=== PATIENT | male | born 1995 | race Caucasian/White ===

== ENCOUNTER 2019-03-19 17:56 | Emergency (ER) | payer BC, OTHER ==
[~2019-03-19] VITALS: Ht 175.3 cm; Wt 95.3 kg
[2019-03-19 18:19] VITALS: BP 154/78
[2019-03-19] MEDS ORDERED: DEXAMETHASONE 4 MG TABLET PO STA (18:23)
--- NOTE | 2019-03-19 18:28 | PHYS DOC ---
Past Medical History Past Medical History: Asthma (DERICK YEUNG APRN) Past Surgical History: No Surgical History (DERICK YEUNG APRN) Alcohol Use: Occasionally Drug Use: None (DERICK YEUNG APRN) Adult General Chief Complaint Chief Complaint: SHORTNESS OF BREATH HPI HPI Patient is a 24 year old male who presents to the ER for SOB that has been ongoing for 2 weeks. The patient states she's been using inhaler from his friend. Does not a primary care doctor. Has a history of asthma. Denies any pain. (DERICK YEUNG APRN) Review of Systems Review of Systems Constitutional: Denies fever or chills [] Eyes: Denies change in visual acuity, redness, or eye pain [] HENT: Denies nasal congestion or sore throat [] Respiratory: Reports cough and shortness of breath [] Cardiovascular: No additional information not addressed in HPI [] GI: Denies abdominal pain, nausea, vomiting, bloody stools or diarrhea [] : Denies dysuria or hematuria [] Musculoskeletal: Denies back pain or joint pain [] Integument: Denies rash or skin lesions [] Neurologic: Denies headache, focal weakness or sensory changes [] Endocrine: Denies polyuria or polydipsia [] Complete systems were reviewed and found to be within normal limits, except as documented in this note. (DERICK YEUNG APRN) Current Medications Current Medications Current Medications Medications (Trade) Dose Ordered Sig/Ronit Start Time Stop Time Status Last Admin Dose Admin Albuterol/ Ipratropium (Duoneb) 3 ml 1X ONCE 03/19/19 18:45 03/19/19 18:46 DC Dexamethasone (Decadron) 10 mg 1X STAT 03/19/19 18:23 03/19/19 18:25 DC 03/19/19 18:23 10 MG (SCOTT DOS SANTOS MD) Allergies Allergies Allergies Coded Allergies Type Severity Reaction Last Updated Verified No Known Drug Allergies 11/16/15 No (SCOTT DOS SANTOS MD) Physical Exam Physical Exam Constitutional: Well developed, well nourished, no acute distress, non-toxic appearance. [] HENT: Normocephalic, atraumatic, bilateral external ears normal, oropharynx moist, no oral exudates, nose normal. [] Eyes: PERRLA, EOMI, conjunctiva normal, no discharge. [] Neck: Normal range of motion, no tenderness, supple, no stridor. [] Cardiovascular:Heart rate regular rhythm, no murmur [] Lungs & Thorax: Bilateral breath sounds have diffuse wheezing. Abdomen: Bowel sounds normal, soft, no tenderness, no masses, no pulsatile masses. [] Skin: Warm, dry, no erythema, no rash. [] Back: No tenderness, no CVA tenderness. [] Extremities: No tenderness, no cyanosis, no clubbing, ROM intact, no edema. [] Neurologic: Alert and oriented X 3, normal motor function, normal sensory function, no focal deficits noted. [] Psychologic: Affect normal, judgement normal, mood normal. [] (DERICK YEUNG APRN) Current Patient Data Vital Signs Vital Signs Date Time Temp Pulse Resp B/P (MAP) Pulse Ox O2 Delivery O2 Flow Rate FiO2 03/19/19 18:43 94 Room Air 03/19/19 18:19 99.2 75 18 154/78 (103) 99.2 (SCOTT DOS SANTOS MD) EKG EKG [] (DERICK YEUNG APRN) Radiology/Procedures Radiology/Procedures [] (DERICK YEUNG APRN) Course & Med Decision Making Course & Med Decision Making Pertinent Labs and Imaging studies reviewed. (See chart for details) Will order breathing treatment and steroids. Patient is improved after 2 breathing treatment, lungs have cleared, patient states he feels better, will discharge home. (DERICK YEUNG APRN) Course & Med Decision Making Staff Physician Addendum: I was working in the ER during the course of this patient's visit. I was available for consultation as needed, but I was not directly involved in the care of this patient. (SCOTT DOS SANTOS MD) Dragon Disclaimer Dragon Disclaimer This electronic medical record was generated, in whole or in part, using a voice recognition dictation system. (DERICK YEUNG APRN) Departure Departure Impression: Primary Impression: Asthma exacerbation Disposition: HOME, SELF-CARE Condition: STABLE Referrals: NO PCP (PCP) Patient Instructions: Asthma Attacks, Prevention, Asthma Prevention-Brief, Asthma, Adult Additional Instructions: Thank you for visiting [facility]. We appreciate you trusting us with your care. If any additional problems come up don't hesitate to return to visit us. Please follow up with your primary care provider so they can plan additional care if needed and know about the problem that you had. If symptoms worsen come back to the Emergency Department. Any concerning symptoms that start such as chest pain, shortness of air, weakness or numbness on one side of the body, running high fevers or any other concerning symptoms return to the ER. Please follow up with a primary care doctor this week. Problem Qualifiers Primary Impression: Asthma exacerbation Asthma severity: moderate Asthma persistence: unspecified Qualified Codes: J45.901 - Unspecified asthma with (acute) exacerbation DERICK YEUNG APRN Mar 19, 2019 18:28 SCOTT DOS SANTOS MD Mar 20, 2019 04:58
[2019-03-19] MEDS ORDERED: IPRATRPIUM/ALBUTEROL 0.5/2.5MG 3 ML NEBU. NEB ONE ×2 (18:30→18:45)
== END 2019-03-19 19:23 | disposition home or self-care (01) ==
LOC: ER 17:56
DX: J45.901 Unspecified asthma with (acute) exacerbation (principal)
CPT/HCPCS: 94640; 99284; J7620; J8540